=== PATIENT | male | born 1940 | race Caucasian/White ===

== ENCOUNTER 2018-07-17 09:08 | Outpatient (CLI) | payer MEDICARE, BC | END 2018-07-17 09:09 | disposition home or self-care (01) | LOC: RAD 09:08 ==

== ENCOUNTER 2018-10-16 08:50 | Outpatient (CLI) | payer MEDICARE, BC | END 2018-10-16 08:51 | disposition home or self-care (01) | LOC: PAT 08:50 | DX: N13.9 Obstructive and reflux uropathy, unspecified (principal); Z01.810 Encounter for preprocedural cardiovascular examination; Z01.811 Encounter for preprocedural respiratory examination; Z01.812 Encounter for preprocedural laboratory examination ==

== ENCOUNTER 2018-11-07 09:05 | Day surgery (SDC) | payer MEDICARE, BC ==
[2018-10-16 09:41] VITALS: BMI 24.9
[2018-11-07] MEDS ORDERED: Propofol 10 mg/ml Inj (20 ML) ONE (11:37)
[2018-11-07] MEDS ORDERED: Midazolam 2 MG/2 ML VIAL ONE (11:37)
[2018-11-07] MEDS ORDERED: cefTRIAXone 1 GM in NS 100 ML BAG IVPB ONE (11:47)
[2018-11-07] MEDS ORDERED: HYDROmorphone 0.5 mg/0.5 ml ISec IVP PRN (12:48)
[2018-11-07 12:59] VITALS: O2SAT 98
[2018-11-07 13:46] VITALS: RESP 18
[2018-11-07 14:19] VITALS: TEMP 98.1
[2018-11-07 15:33] VITALS: BP 151/90; PULSE 73
--- NOTE | 2018-11-08 00:29 | OP ---
PROCEDURE DATE: 11/07/2018 PREOPERATIVE DIAGNOSES: Bladder outlet obstruction, benign prostatic hypertrophy. POSTOPERATIVE DIAGNOSES: Bladder outlet obstruction, benign prostatic hypertrophy. PROCEDURES: Cystoscopy, GreenLight laser vaporization of prostate. ATTENDING SURGEON: Caden Patterson MD ANESTHESIA: General. SPECIMENS: There were none. DRAINS: A 20-Liberian three-way Mcdowell catheter. COMPLICATIONS: None. OPERATIVE FINDINGS: After informed consent was obtained, the patient was taken to the operating room, placed on the operating table. Anesthesia was administered. The patient was placed in dorsal lithotomy position and prepped and draped in usual sterile fashion. The patient received IV antibiotics prior to start of the procedure. A 21-Liberian laser scope with the visualizing obturator was placed in the patient's urethra and advanced proximally under direct vision until the bladder was entered. There was some tortuosity of the distal urethra. The remainder of the urethra was within normal limits. The prostatic urethra showed a markedly enlarged trilobar occlusive prostate with high median lobe growing into the bladder neck. Enlarged lateral lobes. Inspection of the bladder was then performed. There were no stones, tumors or foreign bodies of the bladder noted. Both ureteral orifices were visualized and appeared within normal limits. There was grade 1 to 2 trabeculation noted. At this point, the scope was withdrawn to the level of the verumontanum. Using a GreenLight laser fiber, vaporization of the prostate was then undertaken. The prostate was systematically vaporized from the bladder neck proximally to the level of the verumontanum distally. The median lobe tissue was vaporized first down to the appropriate level. The lateral lobes and apical tissue were then systematically vaporized until the obstructive tissue was completely removed. Any bleeding points encountered during the vaporization were controlled using the cauterization feature of the laser. After the vaporization was complete, the view from the verumontanum revealed a widely opened bladder neck and prostatic fossa. There was good hemostasis. The bladder was inspected. There was no debris in the bladder and at this point the procedure was completed. The bladder was then drained and the scope was removed. A 20-Liberian three-way Mcdowell catheter was then passed and placed to continuous bladder irrigation. The patient tolerated the procedure well. He was returned to the supine position and taken to the recovery room awake in stable condition. Caden Patterson MD
== END 2018-11-07 16:00 | disposition home or self-care (01) ==
LOC: SDS 09:05
PROVIDERS: ATTEND Urology
DX: N40.1 Benign prostatic hyperplasia with lower urinary tract symptoms (principal); N13.8 Other obstructive and reflux uropathy
CPT/HCPCS: 52648; J0696; J1170; J2250; J2704; J3010

== ENCOUNTER 2018-11-08 04:38 | Inpatient (IN) | payer MEDICARE, BC ==
[2018-11-08 04:39] VITALS: BMI 24.9
--- NOTE | 2018-11-08 05:03 | ED PDOC ---
Arrival/HPI <Boubacar Ramirez - Last Filed: 11/08/18 05:06> - General Historian: Patient - History of Present Illness Narrative History of Present Illness (Text): 11/08/18 05:00 Patient is a 77 yo male with CAD and BPH who presents with penile discomfort and syncope. Patient had a cystoscopy with laser of prostate yesterday. A Mcdowell catheter was placed and patient was sent home with Mcdowell and antibiotics (cipro). Patient states that today, he has felt the urge to urinate about 4 times. He says each time this occurs, he feels penile discomfort and sees blood in the Mcdowell bag causing him to collapse to the floor. He reports his temperature was 100 at home. He currently denies any abdominal, pelvic, or penile pain at rest. He has changed the bag during the day before it got full as instructed. is at bedside and states that patient has passed out multiple times throughout the day for a few seconds. He collapses on the floor and he is unable to be aroused. He regains consciousness on his own. Time/Duration: 24 hours Symptom Onset: Sudden Symptom Course: Unchanged Quality: Unable to Describe <Tianna Mckay - Last Filed: 11/08/18 06:05> - General Chief Complaint: Male Genitourinary Time Seen by Provider: 11/08/18 04:40 Past Medical History - Provider Review Nursing Documentation Reviewed: Yes Primary Care Provider: Rohan Noriega - Infectious Disease Hx of Infectious Diseases: None - Cardiac Hx Pacemaker: No - Neurological Hx Paralysis: No - Hematological/Oncological Hx Blood Transfusions: Yes ("PROBABLY 1977") Hx Blood Transfusion Reaction: No - Musculoskeletal/Rheumatological Hx Musculoskeletal Disorders: No - Genitourinary/Gynecological Hx Genitourinary Disorders: Yes - Psychiatric Hx Emotional Abuse: No Hx Physical Abuse: No Hx Substance Use: No - Anesthesia Hx Anesthesia: Yes Hx Anesthesia Reactions: No Hx Malignant Hyperthermia: No - Suicidal Assessment Feels Threatened In Home Enviroment: No <Tianna Mckay - Last Filed: 11/08/18 06:05> Family/Social History - Physician Review Nursing Documentation Reviewed: Yes Family/Social History: Unknown Family HX Smoking Status: Never Smoked Hx Alcohol Use: No Hx Substance Use: No <Tianna Mckay - Last Filed: 11/08/18 06:05> Allergies/Home Meds <Boubacar Ramirez - Last Filed: 11/08/18 05:06> <Tianna Mckay - Last Filed: 11/08/18 06:05> Allergies/Adverse Reactions: Allergies No Known Allergies Allergy (Verified 11/08/18 04:42) Home Medications: Home Meds Medication Instructions Recorded Confirmed Acetaminophen [Tylenol] 325 mg PO PRN PRN 10/16/18 11/08/18 Clopidogrel [Plavix] 75 mg PO DAILY 10/16/18 11/08/18 Lisinopril [Zestril] 20 mg PO DAILY 10/16/18 11/08/18 Simvastatin [Zocor] 40 mg PO DAILY 10/16/18 11/08/18 Tamsulosin [Flomax] 0.4 mg PO QPM 10/16/18 11/08/18 Ciprofloxacin [Cipro] 500 mg PO BID 11/07/18 11/08/18 Review of Systems - Review of Systems Constitutional: absent: Fatigue, Fevers Eyes: absent: Vision Changes ENT: absent: Hearing Changes Respiratory: absent: SOB, Cough Cardiovascular: absent: Chest Pain, Palpitations Gastrointestinal: absent: Abdominal Pain, Constipation, Diarrhea, Nausea, Vomiting Genitourinary Male: Dysuria, Hematuria, Urinary Output Changes, Other (penile pain) Musculoskeletal: Normal Skin: absent: Rash, Pruritis, Skin Lesions Neurological: absent: Headache, Dizziness, Focal Weakness Endocrine: absent: Diaphoresis Hemo/Lymphatic: absent: Adenopathy Psychiatric: Anxiety <Tianna Mckay - Last Filed: 11/08/18 06:05> Physical Exam Vital Signs Reviewed: Yes Temperature: Afebrile Blood Pressure: Hypotensive Pulse: Regular Respiratory Rate: Normal Appearance: Positive for: Non-Toxic, Comfortable Pain Distress: None Mental Status: Positive for: Alert and Oriented X 3 - Systems Exam Head: Present: Atraumatic, Normocephalic Pupils: Present: PERRL Extroacular Muscles: Present: EOMI Conjunctiva: Present: Normal Mouth: Present: Moist Mucous Membranes Respiratory/Chest: Present: Clear to Auscultation, Good Air Exchange Cardiovascular: Present: Regular Rate and Rhythm, Normal S1, S2 Abdomen: No: Tenderness, Distention Genitourinary Male: Present: Normal External Genitalia, Other (Mcdowell catheter in place with leg bag draining red-tinged urine). No: Lesions, Penile Discharge, Testicle Tenderness, Penile Swelling, Erythema Upper Extremity: Present: Normal Inspection Lower Extremity: Present: Normal Inspection. No: Edema Neurological: Present: GCS=15, CN II-XII Intact, Speech Normal, Motor Func Gr ossly Intact, Normal Sensory Function Skin: Present: Warm, Dry, Normal Color Lymphatic: No: Inguinal Adenopathy Psychiatric: Present: Alert, Oriented x 3, Normal Insight, Normal Concentration, Anxious <Tianna Mckay - Last Filed: 11/08/18 06:05> Medical Decision Making ED Course and Treatment: 11/08/18 05:03 40 cc saline into Mcdowell UA, urine Cx 11/08/18 05:19 Mcdowell draining red-tinged urine. Repeat SBP<100. Patient and are concerned regarding syncopal episodes. Agreeable to admission. 11/08/18 05:21 Labs EKG 11/08/18 06:02 Rocephin 1 g IV Re-evaluation Time: 05:21 Reassessment Condition: Re-examined, Unchanged - Lab Interpretations I have reviewed the lab results: Yes Interpretation: Abnormal lab values - EKG Interpretation EKG Interpretation (Text): 11/08/18 05:59 NSR (84 bpm) No ST elevations Interpreted by ED Physician: Yes Type: 12 lead EKG Comparison: Com.w/previous EKG <Tianna Mckay - Last Filed: 11/08/18 06:05> - Scribe Statement Patient Seen With Resident: In agreement with resident note which contains more details about the patient. Patient was seen and evaluated with resident. Came up with plan and treatment together. <Boubacar Ramirez - Last Filed: 11/08/18 05:06> Disposition/Present on Arrival <Boubacar Ramirez - Last Filed: 11/08/18 05:06> - Present on Arrival Any Indicators Present on Arrival: No History of DVT/PE: No History of Uncontrolled Diabetes: No Urinary Catheter: No History of Decub. Ulcer: No History Surgical Site Infection Following: None - Disposition Have Diagnosis and Disposition been Completed?: Yes Disposition Time: 05:17 Patient Plan: Observation, Telemetry <Tianna Mckay - Last Filed: 11/08/18 06:05> - Disposition Diagnosis: Near syncope, UTI (urinary tract infection) Disposition: HOSPITALIZED Patient Problems: Current Active Problems Problem Status Onset Near syncope Acute Condition: FAIR Forms: [employer] (Kiswahili)
[2018-11-08] MEDS ORDERED: Sodium Chloride 0.9% 1,000 ML IV SCH (05:30)
[2018-11-08 05:55] LABS: URINE BILIRUBIN NEGATIVE (NEGATIVE); URINE BLOOD LARGE (NEGATIVE); URINE GLUCOSE (UA) NEGATIVE (NEGATIVE); URINE LEUKOCYTE ESTERASE SMALL Leu/uL (NEGATIVE); URINE PROTEIN 100 mg/dL (<30 mg/dL); URINE UROBILINOGEN 0.2 E.U./dL (<1 E.U./dL)
[2018-11-08 05:56] LABS: BASO # 0.01 K/mm3 (0.0-2.0); BASO % 0.1 % (0.0-3.0); EOS % 0.1 % (1.5-5.0); LYMPH # 0.8 (1.2-3.4); LYMPH % 4.8 % (22.0-35.0); MEAN CELL VOLUME 88.6 fl (80.0-105.0); MEAN CORPUSCULAR HEMOGLOBIN 30.3 pg (25.0-35.0); MEAN CORPUSCULAR HGB CONC 34.2 g/dl (31.0-37.0); MEAN PLATELET VOLUME 9.8 fl (7.0-11.0); MONO # 0.7 (0.1-0.6); MONO % 4.5 % (1.0-6.0); PLATELET COUNT 348 10^3/uL (120.0-450.0); RBC 5.54 10^6/uL (3.5-6.1); URINE APPEARANCE CLOUDY (CLEAR); URINE COLOR DARK YELLOW (YELLOW); WHITE BLOOD COUNT 16.1 10^3/uL (4.5-11.0)
[2018-11-08 05:57] LABS: HEMOGLOBIN 16.8 g/dL (14.0-18.0)
[2018-11-08] MEDS ORDERED: cefTRIAXone 1 gm 1 GM/100 ML BAG IVPB STA (06:01)
[2018-11-08 06:08] LABS: TROPONIN I 0.03 ng/mL
[2018-11-08 06:12] LABS: URINE BACTERIA FEW /hpf; URINE EPITHELIAL CELLS 0 - 2 /hpf (0-5); URINE RBC TNTC /hpf (0-2)
[2018-11-08 06:58] LABS: BAND 1 % (0-2); LYMPHOCYTE 4 % (22.0-35.0); MONOCYTE 3 % (1.0-6.0); NEUTROPHIL 92 % (50.0-70.0); PLATELET ESTIMATE NORMAL (NORMAL); TOXIC GRANULATION SLIGHT
[2018-11-08 07:16] LABS: ALB/GLOB RATIO 1.2 (1.1-1.8); ALBUMIN 3.7 g/dL (3.0-4.8); ALT/SGPT 19 U/L (7-56); AST/SGOT 20 U/L (17-59); BLOOD UREA NITROGEN 23 mg/dL (7-21); CALCIUM 8.4 mg/dL (8.4-10.5); GFR NON-AFRICAN AMERICAN 54
--- NOTE | 2018-11-08 07:25 | ED PDOC ---
Physical Exam Vital Signs Temp Pulse Resp BP Pulse Ox 11/08/18 06:00 80 19 97/60 L 95 11/08/18 05:30 86 18 93/57 L 97 11/08/18 05:10 85 18 98/38 L 95 11/08/18 04:39 98.0 F 87 18 98/38 L 96 Medical Decision Making ED Course and Treatment: 11/08/18 07:00 Case endorsed to me by Dr. Angulo. Pending labs and final disposition/admission to Dr. Grier's service. 11/08/18 07:[address] robb. patient to be admitted for syncope. patient was reported to be transiently hypotensive during ED course (as per dr. serrano with blood pressure of 70/40). patient was treated with iv abx for possible uti considering the patient has a leukocytosis, abnormal UA and reported borderline fever from home. - Lab Interpretations Lab Results: Troponin I 0.03 ng/mL 11/08/18 05:30 Total Bilirubin 0.7 mg/dL (0.2-1.3) 11/08/18 05:30 AST 20 U/L (17-59) 11/08/18 05:30 ALT 19 U/L (7-56) 11/08/18 05:30 Alkaline Phosphatase 58 U/L (38-126) 11/08/18 05:30 Total Protein 6.7 g/dL (5.8-8.3) 11/08/18 05:30 Albumin 3.7 g/dL (3.0-4.8) 11/08/18 05:30 Globulin 3.0 gm/dL 11/08/18 05:30 Albumin/Globulin Ratio 1.2 (1.1-1.8) 11/08/18 05:30 Urine Color Dark yellow (YELLOW) 11/08/18 05:30 Urine Appearance Cloudy (CLEAR) 11/08/18 05:30 Urine pH 6.0 (4.7-8.0) 11/08/18 05:30 Ur Specific [place] 1.010 (1.005-1.035) 11/08/18 05:30 Urine Protein 100 mg/dL (<30 mg/dL) H 11/08/18 05:30 Urine Glucose (UA) Negative mg/dL (NEGATIVE) 11/08/18 05:30 Urine Ketones Negative mg/dL (NEGATIVE) 11/08/18 05:30 Urine Blood Large (NEGATIVE) H 11/08/18 05:30 Urine Nitrate Positive (NEGATIVE) H 11/08/18 05:30 Urine Bilirubin Negative (NEGATIVE) 11/08/18 05:30 Urine Urobilinogen 0.2 E.U./dL (<1 E.U./dL) 11/08/18 05:30 Ur Leukocyte Esterase Small Loret[place]/uL (NEGATIVE) H 11/08/18 05:30 Urine RBC Tntc /hpf (0-2) H 11/08/18 05:30 Urine WBC 1 - 3 /hpf (0-6) 11/08/18 05:30 Ur Epithelial Cells 0 - 2 /hpf (0-5) 11/08/18 05:30 Urine Bacteria Few /hpf (NONE) 11/08/18 05:30 - Medication Orders Current Medication Orders: Sodium Chloride (Sodium Chloride 0.9%) 1,000 mls @ 100 mls/hr IV .Q10H ALEX Last Admin: 11/08/18 05:30 Dose: 100 mls/hr eMAR Start Stop Document 11/08/18 05:30 KV (Rec: 11/08/18 05:35 KV [id number]) Intravenous Solution Start Date 11/08/18 Start Time 05:30 Discontinued Medications Ceftriaxone Sodium (Rocephin 1 Gram Ivpb) 1 gm in 100 mls @ 100 mls/hr IVPB STAT STA; Protocol Stop: 11/08/18 07:00 Last Admin: 11/08/18 06:09 Dose: 100 mls/hr eMAR Start Stop Document 11/08/18 06:09 KV (Rec: 11/08/18 06:09 KV [id number]) Intravenous Solution Start Date 11/08/18 Start Time 06:09 - Scribe Statement The provider has reviewed the documentation as recorded by the Pippa Muir Provider Scribe Attestation: All medical record entries made by the Scribe were at my direction and personal ly dictated by me. I have reviewed the chart and agree that the record accurately reflects my personal performance of the history, physical exam, medical decision making, and the department course for this patient. I have also personally directed, reviewed, and agree with the discharge instructions and disposition. Disposition/Present on Arrival - Present on Arrival Any Indicators Present on Arrival: No History of DVT/PE: No History of Uncontrolled Diabetes: No Urinary Catheter: No History of Decub. Ulcer: No History Surgical Site Infection Following: None - Disposition Have Diagnosis and Disposition been Completed?: Yes Diagnosis: UTI (urinary tract infection), Syncope Disposition: HOSPITALIZED Disposition Time: 07:31 Patient Plan: Admission Patient Problems: Current Active Problems Problem Status Onset Near syncope Acute UTI (urinary tract infection) Acute Condition: GUARDED Discharge Instructions (ExitCare): Syncope (ED) Referrals: Rohan Noriega MD [Primary Care Provider] - Follow up with primary Forms: [employer] (German)
[2018-11-08 07:44] LABS: VENOUS BLOOD GAS PO2 52 mm/Hg (30-55)
[2018-11-08] MEDS: Sodium Chloride 0.9% 1,000 ML IV SCH ×2 (09:15→18:24)
[2018-11-08] MEDS ORDERED: Sodium Chloride 0.9% 1,000 ML IV STA (09:22)
[2018-11-08] MEDS ORDERED: Digoxin 500 mcg/2ml (0.5 mg/2ml) Inj IV ONE (09:39)
[2018-11-08] MEDS ORDERED: Barium Sulfate Susp 2.1% w/v, 2.0% w/w 450 mL Bottle PO ONE (10:37)
--- NOTE | 2018-11-08 11:26 | CP.PCM.CON ---
History of Present Illness - History of Present Illness History of Present Illness: Infectious disease consult note: 77-year-old male with past medical history of CAD, BPH, hypertension, hyperlipidemia presents with penile discomfort and bleeding as well as syncope. Patient states that yesterday he had a cystoscopy done with laser vaporization of the prostate. Following this he was given ciprofloxacin and had a Mcdowell catheter placed. Yesterday patient felt urinary urgency accompanied with penile bleeding. Patient states that he had a syncopal episode x4 yesterday due to the bleeding. He denies hitting his head. Denies any abdominal pain, nausea, vomiting. Denies any fever or chills. No other complaints. Infectious disease was consulted for urinary tract infection. 12 point ROS performed negative other than as stated above PMH: As above PSH: Hip and ankle fracture 40 years ago following a fall from a roof, hernia repair, appendectomy Medications: Refer to MAR Allergies: No known allergies SH: Denies any smoking, drinking, or drugs FH: Denies Review of Systems - Review of Systems All systems: reviewed and no additional remarkable complaints except Past Patient History - Infectious Disease Hx of Infectious Diseases: None - Past Social History Smoking Status: Never Smoked - CARDIAC Hx Pacemaker: No - NEUROLOGICAL Hx Paralysis: No - HEMATOLOGICAL/ONCOLOGICAL Hx Blood Transfusions: Yes ("PROBABLY 1977") Hx Blood Transfusion Reaction: No - MUSCULOSKELETAL/RHEUMATOLOGICAL Hx Musculoskeletal Disorders: No - GENITOURINARY/GYNECOLOGICAL Hx Genitourinary Disorders: Yes - PSYCHIATRIC Hx Emotional Abuse: No Hx Physical Abuse: No Hx Substance Use: No - SURGICAL HISTORY Hx Surgeries: Yes - ANESTHESIA Hx Anesthesia: Yes Hx Anesthesia Reactions: No Hx Malignant Hyperthermia: No Meds Allergies/Adverse Reactions: Allergies Allergy/AdvReac Type Severity Reaction Status Date / Time No Known Allergies Allergy Verified 11/08/18 04:42 - Medications Medications: Current Medications Clopidogrel Bisulfate (Plavix) 75 mg PO DAILY [facility] Last Admin: 11/08/18 10:51 Dose: 75 mg Digoxin (Lanoxin) 0.25 mg IV Q6H [facility] Stop: 11/08/18 22:01 Sodium Chloride (Sodium Chloride 0.9%) 1,000 mls @ 100 mls/hr IV .Q10H [facility] Last Admin: 11/08/18 09:15 Dose: 100 mls/hr Cefepime HCl (Maxipime 1gm) 1 gm in 100 mls @ 100 mls/hr IVPB Q12 ALEX; Protocol Lisinopril (Zestril) 20 mg PO DAILY ALEX Last Admin: 11/08/18 10:51 Dose: 20 mg Tamsulosin HCl (Flomax) 0.4 mg PO QPM [facility] Physical Exam - Constitutional Appears: No Acute Distress - Head Exam Head Exam: ATRAUMATIC, NORMOCEPHALIC - Eye Exam Eye Exam: EOMI, PERRL - ENT Exam ENT Exam: Mucous Membranes Moist - Respiratory Exam Respiratory Exam: Clear to Auscultation Bilateral. absent: Rales, Wheezes - Cardiovascular Exam Cardiovascular Exam: REGULAR RHYTHM, +S1, +S2 - GI/Abdominal Exam GI & Abdominal Exam: Normal Bowel Sounds, Soft. absent: Distended, Tenderness - Exam Additional comments: Urinary Mcdowell catheter in place, trace bleeding oozing from from tip of the penis - Extremities Exam Extremities exam: Negative for: calf tenderness, pedal edema - Neurological Exam Neurological exam: Alert, CN II-XII Intact, Oriented x3 - Psychiatric Exam Psychiatric exam: Normal Mood - Skin Skin Exam: Dry, Normal Color Results - Vital Signs Recent Vital Signs: Last Vital Signs Temp 98.2 F 11/08/18 09:00 Pulse 85 11/08/18 10:51 Resp 16 11/08/18 09:00 BP 117/71 11/08/18 10:51 Pulse Ox 97 11/08/18 09:00 - Labs Result Diagrams: 11/08/18 05:30 11/08/18 05:30 Labs: Laboratory Results - last 24 hr 11/08/18 11/08/18 11/08/18 05:30 05:30 05:30 WBC 16.1 H D RBC 5.54 Hgb 16.8 D Hct 49.1 MCV 88.6 MCH 30.3 MCHC 34.2 RDW 13.0 Plt Count 348 MPV 9.8 Neut % (Auto) 90.5 H Lymph % (Auto) 4.8 L [place] % (Auto) 4.5 Eos % (Auto) 0.1 L Baso % (Auto) 0.1 Lymph # (Auto) 0.8 L [place] # (Auto) 0.7 H Eos # (Auto) 0.0 Baso # (Auto) 0.01 Absolute Neuts (auto) 14.55 H Neutrophils % (Manual) 92 H Band Neutrophils % 1 Lymphocytes % (Manual) 4 L Monocytes % (Manual) 3 Toxic Granulation Slight Platelet Evaluation Normal pO2 VBG pH VBG pCO2 VBG HCO3 VBG Total CO2 VBG O2 Sat (Calc) VBG Base Excess VBG Potassium Glucose Lactate FiO2 Sodium 132 Potassium 4.3 Chloride 100 Carbon Dioxide 23 Anion Gap 14 BUN 23 H Creatinine 1.3 Est GFR ( Amer) > 60 Est GFR (Non-Af Amer) 54 Random Glucose 197 H Calcium 8.4 Phosphorus 4.4 Magnesium 2.1 Total Bilirubin 0.7 AST 20 ALT 19 Alkaline Phosphatase 58 Lactate Dehydrogenase 424 Total Creatine Kinase 30 L Troponin I 0.03 Total Protein 6.7 Albumin 3.7 Globulin 3.0 Albumin/Globulin Ratio 1.2 Venous Blood Potassium Urine Color Dark yellow Urine Appearance Cloudy Urine pH 6.0 Ur Specific [place] 1.010 Urine Protein 100 H Urine Glucose (UA) Negative Urine Ketones Negative Urine Blood Large H Urine Nitrate Positive H Urine Bilirubin Negative Urine Urobilinogen 0.2 Ur Leukocyte Esterase Small H Urine RBC Tntc H Urine WBC 1 - 3 Ur Epithelial Cells 0 - 2 Urine Bacteria Few 11/08/18 07:30 WBC RBC Hgb Hct MCV MCH MCHC RDW Plt Count MPV Neut % (Auto) Lymph % (Auto) [place] % (Auto) Eos % (Auto) Baso % (Auto) Lymph # (Auto) [place] # (Auto) Eos # (Auto) Baso # (Auto) Absolute Neuts (auto) Neutrophils % (Manual) Band Neutrophils % Lymphocytes % (Manual) Monocytes % (Manual) Toxic Granulation Platelet Evaluation pO2 52 VBG pH 7.40 VBG pCO2 40.0 VBG HCO3 24.8 VBG Total CO2 26.0 VBG O2 Sat (Calc) 90.3 H VBG Base Excess 0.0 VBG Potassium 4.1 Glucose 159 H Lactate 1.1 FiO2 21.0 Sodium 132.0 Potassium Chloride 100.0 Carbon Dioxide Anion Gap BUN Creatinine Est GFR ( Amer) Est GFR (Non-Af Amer) Random Glucose Calcium Phosphorus Magnesium Total Bilirubin AST ALT Alkaline Phosphatase Lactate Dehydrogenase Total Creatine Kinase Troponin I Total Protein Albumin Globulin Albumin/Globulin Ratio Venous Blood Potassium 4.1 Urine Color Urine Appearance Urine pH Ur Specific [place] Urine Protein Urine Glucose (UA) Urine Ketones Urine Blood Urine Nitrate Urine Bilirubin Urine Urobilinogen Ur Leukocyte Esterase Urine RBC Urine WBC Ur Epithelial Cells Urine Bacteria Assessment & Plan - Assessment and Plan (Free Text) Assessment: Severe Sepsis with Urinary tract infection following cystoscopy with vaporization of prostate POD 1 Acute kidney injury Syncope, S/P fall History of CAD Hypertension Hyperlipidemia BPH Patient was administered 1 dose of Rocephin in the ED We will discontinue Rocephin and will start on cefepime Follow-up septic work-up Will order CT of the abdomen pelvis, follow-up results Follow-up CT of the head Continue to monitor for any changes Case and plan to be reviewed and discussed with Dr. Klein
--- NOTE | 2018-11-08 13:05 | CT ---
Date of service: 11/08/2018 PROCEDURE: CT HEAD WITHOUT CONTRAST. HISTORY: multiple falls COMPARISON: None available. TECHNIQUE: Axial computed tomography images were obtained through the head/brain without intravenous contrast. Radiation dose: Total exam DLP = 1122.95 mGy-cm. This CT exam was performed using one or more of the following dose reduction techniques: Automated exposure control, adjustment of the mA and/or kV according to patient size, and/or use of iterative reconstruction technique. FINDINGS: HEMORRHAGE: No intracranial hemorrhage. BRAIN: No mass effect or edema. No atrophy or chronic microvascular ischemic changes. VENTRICLES: Unremarkable. No hydrocephalus. CALVARIUM: Unremarkable. PARANASAL SINUSES: Unremarkable as visualized. No significant inflammatory changes. MASTOID AIR CELLS: Unremarkable as visualized. No inflammatory changes. OTHER FINDINGS: None. IMPRESSION: Normal CT of the Head.
--- NOTE | 2018-11-08 13:18 | CP.PCM.PCO ---
Physician Communication Note - Physician Communication Note Physician Communication Note: transient confusion state with cardaic disease. monitor BP.
--- NOTE | 2018-11-08 13:23 | CP.PCM.PCO ---
Physician Communication Note - Physician Communication Note Physician Communication Note: syncope/dizzy sec to transient cerebral hypoperfusion. hydration. PT
--- NOTE | 2018-11-08 14:07 | CT ---
Date of service: 11/08/2018 PROCEDURE: CT Abdomen and Pelvis without intravenous contrast HISTORY: laser TURP yesterday, r/o bladder rupture/pyelo COMPARISON: None. TECHNIQUE: Technique. Contrast dose: Radiation dose: Total exam DLP = 468.67 mGy-cm. This CT exam was performed using one or more of the following dose reduction techniques: Automated exposure control, adjustment of the mA and/or kV according to patient size, and/or use of iterative reconstruction technique. FINDINGS: LOWER THORAX: Minimal discoid atelectasis at the right base. LIVER: Unremarkable. No gross lesion or ductal dilatation. GALLBLADDER AND BILE DUCTS: Unremarkable. PANCREAS: Unremarkable. No gross lesion or ductal dilatation. SPLEEN: Unremarkable. ADRENALS: Unremarkable. No mass. KIDNEYS AND URETERS: Unremarkable. No hydronephrosis. No solid mass. VASCULATURE: Unremarkable. No aortic aneurysm. No aortic atherosclerotic calcification or mural plaque present. BOWEL: Left-sided colonic diverticulosis. No obstruction. No gross mural thickening. APPENDIX: Unremarkable. Normal appendix. PERITONEUM: Unremarkable. No free fluid. No free air. LYMPH NODES: Unremarkable. No enlarged lymph nodes. BLADDER: Mcdowell catheter in the bladder with minimal intraluminal air. Mild bladder wall thickening Nithya is fascicular fat infiltration. REPRODUCTIVE: Prostate enlargement. BONES: No acute fracture. OTHER FINDINGS: None. IMPRESSION: Mcdowell catheter in the bladder with minimal intraluminal air. Mild bladder wall thickening Nithya is fascicular fat infiltration. No evidence of retroperitoneal or peritoneal free air.
[2018-11-08] MEDS: Cefepime 1gm in NS 100ml 1 GM/100 ML BAG IVPB SCH ×2 (15:48→21:54)
[2018-11-08] MEDS: Digoxin 500 mcg/2ml (0.5 mg/2ml) Inj IV SCH ×2 (15:57→21:53)
--- NOTE | 2018-11-08 16:59 | CARD ---
APPROVED REPORT Date of service: 11/08/2018 EKG Measurement Heart [id number] <Conclusion> Sinus rhythm with occasional premature ventricular complexes Possible Left atrial enlargement Borderline ECG
--- NOTE | 2018-11-08 20:56 | CON ---
DATE: 11/08/2018 HISTORY OF PRESENT ILLNESS: This is 77-year-old male with an syncopal episode and called to evaluate the patient and the patient has Mcdowell and has urge to urinate. The patient had a temperature at home, was 100 and denies any abdominal pain and at bedside states that the patient passed out multiple times for a few second during the day. ALLERGIES: NO KNOWN DRUG ALLERGY. HOME MEDICATIONS: Tylenol, Plavix, Zestril, Zocor, Flomax and Cipro. REVIEW OF SYSTEMS: Negative. PHYSICAL EXAMINATION: HEENT: Normocephalic and atraumatic. NECK: Supple. NEUROLOGIC: Awake, alert and oriented x3. No aphasia. Cranial nerves II through XII were tested. Pupil reactive. EOM intact. Visual field full. Spontaneous movement of the extremities noted. Deep tendon reflexes 1+. Plantars downgoing. Sensory appears intact. Cerebellar gait deferred. IMPRESSION AND PLAN: A 77-year-old male with past medical history of hypertension, hyperlipidemia, benign prostate hypertrophy and syncopal episode. The patient had a CAT scan of the head and result pending. Workup is going on. Continue present management. We will followup. Wade Hdz MD
[2018-11-08 21:56] VITALS: PULSE 111
[2018-11-09] MEDS ORDERED: Alum-Mag Hydrox-Simethicone Susp (30 mL) PO ONE (00:16)
--- NOTE | 2018-11-09 01:23 | CON ---
DATE: 11/08/2018 REQUESTING PHYSICIAN: Chino Kiser MD REASON FOR CONSULTATION: Syncope. HISTORY OF PRESENT ILLNESS: This is a 77-year-old man who underwent a laser TURP yesterday. This is reportedly uneventful. A catheter was left in place and he was sent home. While at home, he had intense suprapubic pressure and reduced urinary drainage from the Mcdowell catheter. With intense Valsalva efforts, he lost consciousness briefly at home. This was witnessed by his . There is no seizure-like activity noted. With his maneuver, he did have passage of small clots through his catheter. The same pattern recurred in additional 2-3 times, again with brief loss of the consciousness with each episode. He was brought to the emergency room for evaluation. He was noted to be hypotensive on arrival with blood pressure of 70/40. He has been treated with IV fluids and a larger Mcdowell bag utilized. He is seen resting comfortably on telemetry. PAST MEDICAL HISTORY: Notable for prior appendectomy, herniorrhaphy, hip and ankle fracture following a trauma many years ago. CURRENT MEDICATIONS: Include Flomax, Maxipime, Zestril 20 mg daily. ALLERGIES: NONE. SOCIAL HISTORY: He does not smoke or drink. He lives at home with his . He is retired. FAMILY HISTORY: Both parents are from age-related illness. REVIEW OF SYSTEMS: A 12-point review of systems is otherwise unremarkable. He has had no prior history of syncope. PHYSICAL EXAMINATION: GENERAL: He is an elderly man who appears comfortable at rest. VITAL SIGNS: His blood pressure is 116/70 with a pulse of 86 and in sinus, occasional PVCs are noted, respirations are 14, and he is currently afebrile. HEENT: Normocephalic and atraumatic. NECK: Supple. No JVD noted. CHEST: Clear to auscultation and percussion. HEART: PMI in normal position with a soft systolic murmur is present at the left sternal border. ABDOMEN: Soft and nontender. Normoactive bowel sounds. EXTREMITIES: No clubbing, cyanosis, or edema. SKIN: Warm and dry. NEUROLOGIC: Alert and oriented x3. No gross motor or sensory deficits noted. DIAGNOSTIC DATA: Electrocardiogram reveals sinus rhythm with occasional PVCs, possible left atrial abnormality and nonspecific ST-T abnormalities. Chest x-ray will be reviewed. White count 16.1, hemoglobin and hematocrit of 16.8 and 49.1 with a platelet count of 348,000. Venous blood gas; pH of 7.40, pCO2 of 40, and pO2 of 52. Potassium 4.3. BUN and creatinine 23 and 1.3. Glucose 197. Troponin is 0.03. IMPRESSION: 1. Recurrent syncopal event yesterday, appears most consistent with vasovagal events secondary to bladder pain and spasms. 2. History of hypertension. 3. Transient hypotension likely due to volume depletion, improved with IV hydration. 4. Rest problems as noted. RECOMMENDATIONS: Telemetry monitoring should be continued for 24 hours. Urology followup is advised. Echocardiogram will be obtained while on telemetry. If he has recurrent symptoms related to his present prodromal condition, further evaluation would be recommended. Thank you for this consultation. I will be happy to follow along through his hospital course. Geronimo Meehan MD MTDD
[2018-11-09] MEDS: Sodium Chloride 0.9% 1,000 ML IV SCH (04:35)
[2018-11-09 07:27] LABS: BASO # 0.01 K/mm3 (0.0-2.0); BASO % 0.1 % (0.0-3.0); EOS # 0.1 (0.0-0.7); EOS % 0.5 % (1.5-5.0); HEMOGLOBIN 11.4 g/dL (14.0-18.0); LYMPH # 1.5 (1.2-3.4); LYMPH % 13.2 % (22.0-35.0); MEAN CELL VOLUME 89.5 fl (80.0-105.0); MEAN CORPUSCULAR HEMOGLOBIN 29.2 pg (25.0-35.0); MEAN CORPUSCULAR HGB CONC 32.6 g/dl (31.0-37.0); MEAN PLATELET VOLUME 9.1 fl (7.0-11.0); MONO % 8.9 % (1.0-6.0); RBC 3.91 10^6/uL (3.5-6.1); RED CELL DISTRIBUTION WIDTH 13.3 % (11.5-14.5)
[2018-11-09 08:09] LABS: ALT/SGPT 18 U/L (7-56); AST/SGOT 21 U/L (17-59); BLOOD UREA NITROGEN 13 mg/dL (7-21); CALCIUM 8.1 mg/dL (8.4-10.5); GFR NON-AFRICAN AMERICAN > 60
[2018-11-09] MEDS ORDERED: cefTRIAXone 1 gm 1 GM/100 ML BAG IVPB SCH (10:00)
[2018-11-09] MEDS: Cefepime 1gm in NS 100ml 1 GM/100 ML BAG IVPB SCH ×2 (10:58→21:37)
[2018-11-09 12:24] LABS: PH,URINE 5.5 (4.7-8.0); URINE BILIRUBIN NEGATIVE (NEGATIVE); URINE BLOOD LARGE (NEGATIVE); URINE GLUCOSE (UA) NEGATIVE (NEGATIVE); URINE LEUKOCYTE ESTERASE SMALL Leu/uL (NEGATIVE); URINE PROTEIN TRACE mg/dL (<30 mg/dL); URINE UROBILINOGEN 0.2 E.U./dL (<1 E.U./dL)
[2018-11-09 12:27] LABS: URINE APPEARANCE CLEAR (CLEAR); URINE COLOR YELLOW (YELLOW)
[2018-11-09 12:29] LABS: URINE BACTERIA MANY /hpf; URINE EPITHELIAL CELLS 0 - 2 /hpf (0-5); URINE RBC 25 - 30 /hpf (0-2)
[2018-11-09 12:30] LABS: URINE AMORPHOUS SEDIMENT FEW /hpf
--- NOTE | 2018-11-09 13:13 | PN ---
DATE: 11/09/2018 SUBJECTIVE: The patient is seen lying in bed on telemetry. He is feeling better. He denies any recurrent lightheadedness. CURRENT MEDICATIONS: Include Flomax, Maxipime, IV fluids and Zestril 20 mg daily. OBJECTIVE: GENERAL: He is a elderly male appears comfortable at the present time. VITAL SIGNS: His blood pressure is 156/82, pulse of 90, and sinus respirations 14. He is afebrile. HEENT: No JVD. CHEST: Clear to auscultation and percussion. HEART: Systolic murmurs in the left sternal border. S1 and S2, normal. ABDOMEN: Soft and nontender. Normoactive bowel sounds. EXTREMITIES: No edema. Mcdowell catheter remains in placed. LABORATORY DATA: His potassium is 4.4. BUN and creatinine 13 and 0.6. White count 11.0, hematocrit 11.4 and 35.0 and platelet count 230,000. IMPRESSION: 1. The recent multiple episodes of syncope. Most likely vasovagal in nature as he was straining and likely he had obstructing blood clots in Mcdowell catheter at that time. Workup as far as been unremarkable. 2. History of hypertension. RECOMMENDATIONS: Echocardiogram was ordered and this pending this would be reviewed. IV fluids can be discontinued at this time. Plavix remains on hold. Further Urology recommendations are pending. I will continue to follow and make further recommendations as appropriate. Geronimo Meehan MD MTDD
--- NOTE | 2018-11-09 17:39 | CON ---
DATE OF CONSULTATION: 11/09/2018 The patient is in bed, no acute distress, seen earlier today in 263, bed 1. CHIEF COMPLAINT: The patient was admitted with syncope and penile discomfort for several days. HISTORY OF PRESENT ILLNESS: This is a 77-year-old [place]ian male with coronary artery disease, BPH, hypertension, hyperlipidemia. He had a cystoscopy done with laser vaporization of the prostate. He was given Cipro after the procedure and catheter was placed. The patient had urinary urgency accompanied with hematuria, had syncopal episode x4, and no known trauma to the head. No abdominal pain, diarrhea or constipation. No fevers and chills, no chest pain. PAST MEDICAL HISTORY: Significant for coronary artery disease, hypertension, BPH, hyperlipidemia, cerebrovascular accident, bronchitis. PAST SURGICAL HISTORY: Significant for hernia surgery, left hip surgery, cystoscopy, appendectomy. SOCIAL HISTORY: He still smokes cigarettes. MEDICATIONS AT HOME: Include the patient to be on Proscar, Flomax, Zocor, Zestril, Plavix, was on Cipro. ALLERGIES: THE PATIENT HAS NO KNOWN ALLERGIES. REVIEW OF SYSTEMS: A 12-point review of systems is performed. PHYSICAL EXAMINATION: GENERAL: The patient is in bed in no acute distress, answering questions appropriately. The patient's daughter and are sitting. VITAL SIGNS: Temperature is 98; heart rate was 96, it was up to 110; respiratory rate of 19; blood pressure is 131/78. HEENT: Unremarkable. NECK: Supple. LUNGS: Decreased breath sounds. HEART: Normal S1, S2. ABDOMEN: Soft, nontender. The patient has a Mcdowell catheter. LABORATORY EXAMINATION: Reveals a white count of 16,000, hemoglobin of 16, and platelets of 348,000. BUN of 23. Creatinine is 1.3, which is elevated from 0.7 to creatinine of 1.3. Yesterday, it was down to 0.6. Today, glucose is elevated. Urinalysis is noted with 1-3 wbc's, too numerous to count rbc's, leukocyte esterase positive, nitrites are positive, and the urine culture is no growth. The patient had a CAT scan of the abdomen and pelvis, which is reviewed. ASSESSMENT/PLAN: This is a 77-year-old [place] male admitted with #1 is severe sepsis with urine as the source with acute kidney injury after a cystoscopy with vaporization of the prostate postop day #2, status post syncope and fall in a patient who was given antibiotics as outpatient main. If infected urine culture, we will repeat a urinalysis and urine culture. Currently on Maxipime day #2 and his white count is improved at 16,000, down to normal. We will follow with you. Those blood cultures are pending. White count from yesterday was 16,100 and is down to 11,000 today with improvement also in the renal function. Robert Klein MD
[2018-11-09 17:48] VITALS: O2SAT 96
[2018-11-10] MEDS ORDERED: DiphenhydrAMINE 50 mg/ml Inj IVP STA (01:53)
--- NOTE | 2018-11-10 02:50 | HP ---
HISTORY OF PRESENT ILLNESS: The patient is a 77-year-old male who had a cystoscopy followed by GreenLight laser vaporization of the prostate on 11/07/2018 for bladder outlet obstruction and benign prostatic hypertrophy, done by Dr. Patterson. On 11/07/2018, the patient states he was discharged the same day. The patient states he started to have some suprapubic discomfort. He already went home with Mcdowell catheter, and he was given p.o. antibiotics. He did well overnight but last night, he had a desire to urinate and started to see blood in the draining bag. He saw clots and blood in the bag. After that, he passed out. He also felt he was warmth and feeling having light weakness. According to the ER notes, also endorsed that he was feeling weak, and he was going in and out. Finally when he collapsed, they called ambulance, and was brought to the emergency room. PAST MEDICAL HISTORY: Significant for, 1. Coronary artery disease. 2. History of hypertension. 3. Hyperlipidemia. SURGICAL HISTORY: Significant for, 1. Appendectomy. 2. Herniorrhaphy. 3. History of hip and ankle fractures in the remote past and intervention done for that. ALLERGIES: NOT ALLERGIC TO ANY MEDICATIONS. MEDICATIONS AT HOME: He is on Proscar 5 mg daily, Flomax 0.4 mg daily, Zocor 40 mg daily, lisinopril 20 mg daily, Plavix 75 mg daily, Cipro 500 mg twice a day and Tylenol as needed. SOCIAL HISTORY: He is . Lives with his . History of social drinking but no history of smoking. PHYSICAL EXAMINATION: GENERAL: He looks little pale. Otherwise, he is fully awake, alert, oriented, communicative. VITAL SIGNS: He is afebrile, pulse 85, respirations 18, blood pressure 130/66. LUNGS: Bilateral fair airflow. No rhonchi or crackles. HEART: S1 and S2 audible. ABDOMEN: Soft. NEUROLOGICAL: He is awake and alert, able to communicate. EXTREMITIES: Bilateral legs, no edema. LABORATORY EXAMINATION: Upon arrival, his WBC was 16.1 and today 11, hemoglobin 11.4, hematocrit 35, platelets 230. Chemistry: Sodium 138, potassium 4.4, chloride 106, CO2 of 28, BUN 13, creatinine 0.6, blood sugar 111, calcium 8.1. Urine shows wbc's 10 to 15 and rbc's 25 to 30. ASSESSMENT AND PLAN: 1. Status post syncope secondary to genitourinary bleeding, could be vasovagal. Neurology workup so far is negative. CT scan of the head is negative. 2. History of hypertension. 3. Coronary artery disease. 4. Hyperlipidemia. 5. Benign prostatic hypertrophy, status post recent cystoscopy and laser vaporization. Urine culture done on 11/08/2018 is negative. Plan is currently, the patient is on Flomax. He is getting Maxipime. He was on Plavix but that is on hold for now. His blood pressure seems to be stable now. We will re-introduce lisinopril. Continue him on finasteride and simvastatin. We will follow with complete blood count and comprehensive panel in the morning. Encourage ambulation. We will follow up in the morning. Jesus Greenwood MD
--- NOTE | 2018-11-10 05:39 | CARD ---
APPROVED REPORT Date of service: 11/09/2018 EXAM: Two-dimensional and M-mode echocardiogram with Doppler and color Doppler. INDICATION Syncope 2D DIMENSIONS Left Atrium (2D)3.7 (1.6-4.0cm)IVSd1.0 (0.7-1.1cm) Aortic Root (2D)3.4 (2.0-3.7cm)LVDd4.7 (3.9-5.9cm) PWd0.9 (0.7-1.1cm)LVDs2.9 (2.5-4.0cm) FS (%) 38.1 %LVEF (%)68.4 (>50%) M-Mode DIMENSIONS Aortic Cusp Exc.1.50 (1.5-2.0cm) Aortic Valve AoV Peak Uwplyxnh678.0cm/Mani Peak GR.14mmHg Mitral Valve MV E Vcxsvgwc56.0cm/sMV A Hobjdczs16.1cm/sE/A ratio0.9 TDI Lateral E' Peak V11.10cm/sMedial E' Peak V10.10cm/sE/Lateral E'7.8 E/Medial E'8.6 Pulmonary Valve PV Peak Rkemdrkg881.0cm/sPV Peak Grad.5mmHg Tricuspid Valve TR Peak Hlgjldqg291rm/sRAP BTXNTOGY2njZdXJ Peak Gr.32mmHg [id number] LEFT VENTRICLE The left ventricle is normal size. There is normal left ventricular wall thickness. The left ventricular function is normal. The left ventricular ejection fraction is within the normal range. There is normal LV segmental wall motion. RIGHT VENTRICLE The right ventricle is normal size. The right ventricular systolic function is normal. ATRIA The left atrium size is normal. The right atrium size is normal. The interatrial septum is intact with no evidence for an atrial septal defect. AORTIC VALVE The aortic valve is mildly sclerotic. There is trace aortic regurgitation. There is no aortic valvular stenosis. MITRAL VALVE The mitral valve is normal in structure. Mitral regurgitation is trace. TRICUSPID VALVE The tricuspid valve is normal in structure. There is mild tricuspid regurgitation. PULMONIC VALVE The pulmonary valve is normal in structure. GREAT VESSELS The aortic root is normal in size. The IVC is normal in size and collapses >50% with inspiration. PERICARDIAL EFFUSION There is no pleural effusion. There is no pericardial effusion. <Conclusion> Normal chamber size. Normal LV systolic function. Mild TR.
[2018-11-10 07:38] LABS: BASO # 0.02 K/mm3 (0.0-2.0); BASO % 0.2 % (0.0-3.0); EOS # 0.2 (0.0-0.7); EOS % 2.6 % (1.5-5.0); HEMOGLOBIN 10.6 g/dL (14.0-18.0); LYMPH # 1.8 (1.2-3.4); LYMPH % 19.6 % (22.0-35.0); MEAN CELL VOLUME 89.9 fl (80.0-105.0); MEAN CORPUSCULAR HGB CONC 32.3 g/dl (31.0-37.0); MEAN PLATELET VOLUME 9.6 fl (7.0-11.0); MONO # 0.9 (0.1-0.6); MONO % 9.4 % (1.0-6.0); RBC 3.65 10^6/uL (3.5-6.1); RED CELL DISTRIBUTION WIDTH 13.4 % (11.5-14.5); WHITE BLOOD COUNT 9.2 10^3/uL (4.5-11.0)
--- NOTE | 2018-11-10 07:49 | PN ---
DATE: 11/10/2018 SUBJECTIVE: The patient is seen lying in bed on telemetry. He is comfortable at present time. He has had no further lightheadedness. CURRENT MEDICATIONS: Include Flomax, Lipitor, Maxipime, Proscar and Zestril 20 mg daily. OBJECTIVE: GENERAL: He is an elderly man who appears comfortable at the present time. VITAL SIGNS: His blood pressure is 162/74, pulse of 86 and sinus, respirations of 14. He is afebrile. HEENT: No JVD. CHEST: Clear to auscultation and percussion. HEART: Normal first and second sounds with no pathological murmur or gallops noted. ABDOMEN: Soft and nontender with bowel sounds. EXTREMITIES: No edema. Mcdowell catheter remains in place. DIAGNOSTIC DATA: Echocardiogram was reviewed and reveals evidence of normal chamber size with normal LV systolic function and mild tricuspid regurgitation. IMPRESSION: 1. Recent syncope, suspect vasovagal in nature. 2. Status post transurethral resection of the prostate with indwelling Mcdowell in place. 3. Postprocedural hematuria, improved. 4. Hypertension, fair control. RECOMMENDATIONS: His current medications can continue. Intensified antihypertensive therapy is advised as needed. From a cardiac standpoint, he is stable for discharge to home and outpatient followup will be arranged as needed. Followup with Dr. Patterson is planned for Sunday. Geronimo Meehan MD
[2018-11-10 08:06] LABS: ALB/GLOB RATIO 1.1 (1.1-1.8); ALBUMIN 3.1 g/dL (3.0-4.8); ALT/SGPT 21 U/L (7-56); AST/SGOT 20 U/L (17-59); BLOOD UREA NITROGEN 10 mg/dL (7-21); CALCIUM 8.3 mg/dL (8.4-10.5); GFR NON-AFRICAN AMERICAN > 60
[2018-11-10] MEDS ORDERED: Cefpodoxime (Vantin) 200 mg Tab PO SCH (10:00)
[2018-11-10 12:25] VITALS: BP 135/76; PULSE 72; RESP 20; TEMP 98.7
--- NOTE | 2018-11-10 13:01 | PN ---
DATE: 11/10/2018 SUBJECTIVE: The patient is in bed, in no acute distress, nontoxic. PHYSICAL EXAMINATION: VITAL SIGNS: Temperature is 98, blood pressure is 162/70, respiratory rate of 18. HEENT: Unremarkable. NECK: Supple. LUNGS: Have decreased breath sounds. HEART: Normal S1, S2. ABDOMEN: Soft, nontender. LABORATORY DATA: Laboratory examination reveals a white count of 9.2, hemoglobin of 10, platelets of 236, BUN of 10, creatinine of 0.6 and urinalysis is noted. Microbiology reveals the blood cultures are negative. Urine cultures are negative. Repeat urine culture is negative. Review of orders reveals the patient to be on cefepime. ASSESSMENT AND PLAN: This is a 77-year-old male who was admitted with severe sepsis, urine as the source with acute kidney injury after a cystoscopy, vaporization of prostate and postop day #3, status post syncope and the patient was given antibiotics as outpatient. Currently day #3 of Maxipime. The patient is afebrile. His tachycardia is resolved, his respiratory rate is normal and his white count is also down to 9.2 and his renal function is normalized and urinalysis and repeat urinalysis shows there is 10 to 15 wbcs. We will discontinue the cefepime and complete with p.o. Vantin 200 mg b.i.d. x7 days. The patient should continue to follow up with Urology. Robert Klein MD
--- NOTE | 2018-11-10 22:25 | DS ---
HISTORY OF PRESENT ILLNESS: The patient is 77-year-old, who came to emergency room because of penile discomfort, suprapubic discomfort. He has hematuria has been admitted, has Mcdowell in, draining clear urine. No fever. No chills. No nausea and vomiting. No diarrhea. Eating and tolerating. PHYSICAL EXAMINATION: VITAL SIGNS: He is afebrile. Pulse 74, respiration 18 and blood pressure 157/68. LUNGS: Bilateral fair airflow. No rhonchi or crackle. HEART: S1 and S2, audible. ABDOMEN: Soft. No suprapubic discomfort. NEUROLOGIC: He is awake, alert and able to communicate. EXTREMITIES: Bilateral leg no edema. LABORATORY DATA: WBC 9.2, hemoglobin 10.6, hematocrit 32.8 and platelet 236. Chemistry; sodium 159, potassium 3.6, chloride 104, CO2 of 29, BUN 10, creatinine 0.6 and blood sugar of 103. His repeat cultures are negative. Blood cultures are negative. ASSESSMENT: 1. Status post GreenLight laser vaporization of prostate. 2. Status post hematuria. 3. Status post syncope, secondary to vasovagal and partly secondary to blood loss. 4. History of hypertension. 5. Coronary artery disease. 6. Hyperlipidemia. PLAN: The patient is currently draining clear urine. His urine did not grow any culture. His white count is improving, it is 9.2 today. So, the patient will be evaluated by Dr. Patterson and we can give him a week of antibiotic. He can continue his medications. His Plavix is still on hold. We will discuss with Dr. Patterson when it has to be released; otherwise he can continue his Flomax, atorvastatin, finasteride and I will give prescription of Vantin and lisinopril. He will followup with Dr. Rivera, as plan to discontinue Mcdowell and after than he will be watched. If he voids, he will be discharge on p.o. Vantin, finasteride and Flomax. Jesus Greenwood MD
--- NOTE | 2018-11-11 08:19 | PN ---
DATE: 11/09/2018 CHIEF COMPLAINT: Syncopal episode. HISTORY OF PRESENT ILLNESS: This is a 77-year-old male who is known to me. The patient had a GreenLight laser vaporization of obstructing prostatic tissue done yesterday. The patient went home. He reports at home he was feeling weak and then had a questionable syncopal episode. He was brought to the emergency room, he was found to be somewhat hypotensive. He reports having a low grade fever at home. He felt that he needed to urinate even though the catheter was in place and draining prior to him collapsing on the floor. He regained consciousness on his own. He was brought to the emergency room where he was evaluated and admitted for observation and treatment. He has a history of cardiac disease as well. The patient is now seen on postop day #1. He reports feeling a lot better, but does feel somewhat weak and tired. He has been afebrile. Temperature of 98.2; blood pressure 110/71, it was 98/38 this morning when he was in the emergency room; pulse now 82, respirations 16 and abdomen is benign. Caden Patterson MD
== END 2018-11-10 15:56 | disposition home or self-care (01) | DRG 312 ==
LOC: ED 04:38 → ERH 07:26 → 2RNO 09:04
PROVIDERS: ADMIT Internal Medicine Nephrology; ATTEND Internal Medicine Nephrology
DX: R55 Syncope and collapse (principal); N39.0 Urinary tract infection, site not specified; R31.9 Hematuria, unspecified; I25.10 Atherosclerotic heart disease of native coronary artery without angina pectoris; I10 Essential (primary) hypertension; E78.5 Hyperlipidemia, unspecified; E86.9 Volume depletion, unspecified; F17.210 Nicotine dependence, cigarettes, uncomplicated; Z90.79 Acquired absence of other genital organ(s); Z86.73 Personal history of transient ischemic attack (TIA), and cerebral infarction without residual deficits; Z79.02 Long term (current) use of antithrombotics/antiplatelets